=== PATIENT | female | born 1985 | race Caucasian/White ===

== ENCOUNTER 2019-07-29 23:50 | Emergency (ER) | payer MEDICAID ==
[~2019-07-29] VITALS: Ht 165.1 cm; Wt 72.6 kg
[~2019-07-29 23:50] MED LIST: ONDANSETRON 8 MG; PROMETHAZINE 25 MG TABLET
[2019-07-30 00:10] VITALS: BP 128/85
[2019-07-30] MEDS ORDERED: KETOROLAC TROMETH 60MG/2ML VIAL IM ONE (01:00)
[2019-07-30] MEDS ORDERED: cefTRIAXone SOD 1,000 MG VL IM ONE (01:00)
== END 2019-07-30 01:36 | disposition home or self-care (01) ==
LOC: ER 23:52
DX: K08.89 Other specified disorders of teeth and supporting structures (principal); H92.09 Otalgia, unspecified ear; Z88.6 Allergy status to analgesic agent
CPT/HCPCS: 96372; 99284; J0696; J1885